=== PATIENT | female | born 1950 | race Caucasian/White ===

== ENCOUNTER 2016-08-02 00:38 | Observation (INO) | payer MEDICARE ==
[~2016-08-02] VITALS: Ht 162.6 cm; Wt 67.3 kg
[~2016-08-02 00:38] MED LIST: NOMEDS; PHENERGAN 25MG.25 M1 PO; TRAMADOL 50MG T50 MG PO
[2016-08-02 00:41] VITALS: BP 167/106
[2016-08-02] MEDS ORDERED: HYDROCHLOROTH12.5 M1 PO (00:45)
--- OUTSIDE RECORDS SUMMARY | 2016-08-02 00:51 | External Medical Summary Rpt ---
Author Author , Organization [employer] Address Unknown Phone Unavailable Purpose Continuity of Care Document - through 2016
--- OUTSIDE RECORDS SUMMARY | 2016-08-02 00:51 | External Medical Summary Rpt ---
Author Author [employer] Organization [employer] Address Unknown Phone Unavailable Purpose Continuity of Care Document - through 2016
--- OUTSIDE RECORDS SUMMARY | 2016-08-02 00:52 | External Medical Summary Rpt ---
Demographics Preferred Language Czech Marital Status Unknown Sikh Affiliation Unknown Race Unknown Ethnic Group Unknown Author Author , Organization [employer] Address Unknown Phone Unavailable Purpose Continuity of Care Document - through 2016 Immunization No patient found.
--- OUTSIDE RECORDS SUMMARY | 2016-08-02 00:52 | External Medical Summary Rpt ---
Demographics Preferred Language Lithuanian Marital Status Unknown Buddhism Affiliation Unknown Race Unknown Ethnic Group Unknown Author Author , Organization [employer] Address Unknown Phone Unavailable Purpose Continuity of Care Document - through 2016 Immunization No patient found.
[2016-08-02 00:55] LABS: HEMOGLOBIN 13.3 g/dL (12.2-16.2); LYMPH # 3.1 K/mm3 (0.7-4.5); LYMPH % 43.1 % (10-50.0)
--- NOTE | 2016-08-02 01:09 | Emergency Room Report ---
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 N Clinical Suspician of Infection? N Mental Status: 1 - Regular (Normal Baseline) Sepsis Risk:Low Sepsis Risk Have you (or family members/close friends) recently traveled outside the [place]? N If Yes, where/when: Have you had exposure to infectious disease within the past month? N TB? Other? Specify: Source patient, RN notes reviewed, family, old records Exam Limitations no limitations Comment pt has been dizzyness over the last 2 weeks after starting diuretic and tonight had syncopal episode and reports she was not breathing for a minute and he gave 2 rescue breaths- no chest pain/palpatation and she was unaware of syncope or diff with breathing Cardiac Chest Pain Chest pain indicative of cardiac No Timing/Duration this evening Severity moderate ALLERGIES Coded Allergies: No Known Allergies (08/02/16) Home Medications Active Scripts Promethazine Hydrochloride (Phenergan 25MG Tab) 25 MG PO Q4-6H PRN #12 Prov: 05/09/11 Reported Medications No Home Medications (NO HOME MEDICATIONS) Hydrochlorothiazide (Hydrochlorothiazide 12.5MG) 25 MG PO DAILY History Medical History General CAD? No Angina: No [place]: No Hypertension? Yes Hyperlipidemia? No CHF? No DVT? No PE? No COPD? No Asthma? No Anemia? No GERD? No Gastric ulcers? No GI Bleed? No Hernia? No Thyroid Problems? No Hypothyroidism? No CVA? No Seizures? No Diabetes? No Renal Insuffiency? No End Stage Renal Disease? No UTI? No Stones? No BPH? No GB Disease: Yes Nephritic Syndrome? No Asplenia? No Hepatitis? No Sickle Cell Disease? No Arthritis? No Migraines? No Cataracts? No Glaucoma? No MRSA? No HIV? No TB? No Anxiety? No Depression? No Cancer? No More? No Immunization Hx DT/Tetanus UNKNOWN Surgical Hx Previous Surgery?Y Cholecystectomy Social History Smoking Hx Smoker: Never Smoker Tobacco: No Alcohol Alcohol: No Drugs none Review of Systems All Other Systems Reviewed and Negative Constitutional denies fever Eyes denies drainage ENT denies: ear discharge, epistaxis, throat pain. Respiratory denies cough, denies shortness of breath, denies wheezing Cardiovascular see HPI, denies chest pain, denies palpitations, syncope Gastrointestinal denies abdominal pain, denies diarrhea, denies vomiting Genitourinary denies: dysuria, frequency, hesitancy, hematuria. Musculoskeletal denies back pain, denies joint pain, denies neck pain Skin denies rash Psychiatric/Neurological denies headache, denies seizure Physical Exam Vital Signs Vital Signs Date Time Temp Pulse Resp B/P Pulse O2 O2 Flow FiO2 Ox Delivery Rate 08/02 0132 81 18 144/81 99 08/02 0100 80 123/85 08/02 0100 79 167/93 08/02 0100 77 157/96 08/02 0041 98.5 85 18 167/106 99 - WBC >12,000 or <4,000 or 10% bands? 2 or more SIRS Criteria Met? B/P:135/80 MAP:126 Creatinine >2.0? UA output<0.5ml/kg/hr for 2 hrs? Platelet count >100,000? Lactate >2.0mmol/1? INR >1.2 or PTT > than 60 sec? Evidence of Organ Dysfunction? Provider documented clinical suspician of infection? N Sepsis Criteria Count: 0 Sepsis Risk: Low Sepsis Risk General Appearance no apparent distress Eye Exam - bilateral eye PERRL, bilateral eye EOMI Ear, Nose, Throat normal ENT inspection, no tongue biting Neck supple, no bruits Respiratory Status No: respiratory distress. Lung Sounds bilateral: lungs clear. 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 No Results/Orders Laboratory Tests 08/02/16 0050: Sodium 140, Potassium 2.3 *L, Chloride 96 L, Carbon Dioxide 36 H, BUN 28 H, Creatinine 1.2 H, Estimated Creat Clear 51, Estimated GFR (MDRD) 45 L, Glucose 106, Calcium 9.7, Total Bilirubin 0.4, AST 21, ALT 27, Alkaline Phosphatase 94, Creatine Kinase 237 H, CK-MB (CK-2) Rel Index 0.7, CK and CKMB Interp 1.6, Troponin I < 0.02, Total Protein 7.9, Albumin 3.9, Globulin 4.0 H, Albumin/ Globulin Ratio 1.0 L, WBC 7.1, RBC 4.64, Hgb 13.3, Hct 41.0, MCV 88.4, RDW 12.9 , Plt Count 322, MPV 6.6 L, Gran % 47.5, Gran # 3.4, Lymphocytes % 43.1, Monocytes % 6.2, Eosinophils % 2.6, Basophils % 0.6, Lymphocytes # 3.1, Monocytes # 0.4, Eosinophils # 0.2, Basophils # 0.0, PUBS MCHC 32.5, MCH 28.7 Current Medication Orders Sig/Janice Start time Last Medication Dose Route Stop Time Status Admin Potassium Chloride/ 100 ML ONCE ONE 08/02 0145 AC 08/02 Water IV 08/02 0344 0144 Sodium Chloride 10 ML PRN PRN 08/02 010 AC IV 08/03 0047 Sodium Chloride 1,000 ML .Q1H1M 08/02 0100 CAN IV Sodium Chloride 10 ML PRN PRN 08/02 0100 DC IV 08/03 0048 Sodium Chloride 1,000 ML .Q1H1M 08/02 0100 DC 08/02 IV 08/02 0200 0053 Sodium Chloride 10 ML PRN PRN 08/02 0100 AC IV 08/03 0052 Sodium Chloride 1,000 ML .STK-MED ONE 08/02 0045 DC IV Orders Procedure Date/time Status Decision to admit 08/02 138 Active ELECTROCARDIOGRAM REQUEST 08/02 48 Active CHEST(2 VIEWS-NOT PORTABLE) 08/02 48 Active IV SALINE LOCK 08/02 48 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 ST/Twave chgs XRAY/CT/US XRAY/CT/US XRAY chest XR interpretation by reviewed by me Xray Results normal/NAD Departure Departure Time of Disposition 0210 Disposition Still a Patient Clinical Impression Primary Impression: Syncope Qualifiers: Syncope type: unspecified Qualified Code: R55 - Syncope and collapse Secondary Impressions: Hypokalemia, Renal insufficiency Condition STABLE Referrals Ced HOLLAND,Toi discussed with dr clements ED Critical Care Critical Care No at 0212
--- NOTE | 2016-08-02 01:09 | Emergency Room Report ---
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 N Clinical Suspician of Infection? N Mental Status: 1 - Regular (Normal Baseline) Sepsis Risk:Low Sepsis Risk Have you (or family members/close friends) recently traveled outside the [place]? N If Yes, where/when: Have you had exposure to infectious disease within the past month? N TB? Other? Specify: Source patient, RN notes reviewed, family, old records Exam Limitations no limitations Comment pt has been dizzyness over the last 2 weeks after starting diuretic and tonight had syncopal episode and reports she was not breathing for a minute and he gave 2 rescue breaths- no chest pain/palpatation and she was unaware of syncope or diff with breathing Cardiac Chest Pain Chest pain indicative of cardiac No Timing/Duration this evening Severity moderate ALLERGIES Coded Allergies: No Known Allergies (08/02/16) Home Medications Active Scripts Promethazine Hydrochloride (Phenergan 25MG Tab) 25 MG PO Q4-6H PRN #12 Prov: 05/09/11 Reported Medications No Home Medications (NO HOME MEDICATIONS) Hydrochlorothiazide (Hydrochlorothiazide 12.5MG) 25 MG PO DAILY History Medical History General CAD? No Angina: No [place]: No Hypertension? Yes Hyperlipidemia? No CHF? No DVT? No PE? No COPD? No Asthma? No Anemia? No GERD? No Gastric ulcers? No GI Bleed? No Hernia? No Thyroid Problems? No Hypothyroidism? No CVA? No Seizures? No Diabetes? No Renal Insuffiency? No End Stage Renal Disease? No UTI? No Stones? No BPH? No GB Disease: Yes Nephritic Syndrome? No Asplenia? No Hepatitis? No Sickle Cell Disease? No Arthritis? No Migraines? No Cataracts? No Glaucoma? No MRSA? No HIV? No TB? No Anxiety? No Depression? No Cancer? No More? No Immunization Hx DT/Tetanus UNKNOWN Surgical Hx Previous Surgery?Y Cholecystectomy Social History Smoking Hx Smoker: Never Smoker Tobacco: No Alcohol Alcohol: No Drugs none Review of Systems All Other Systems Reviewed and Negative Constitutional denies fever Eyes denies drainage ENT denies: ear discharge, epistaxis, throat pain. Respiratory denies cough, denies shortness of breath, denies wheezing Cardiovascular see HPI, denies chest pain, denies palpitations, syncope Gastrointestinal denies abdominal pain, denies diarrhea, denies vomiting Genitourinary denies: dysuria, frequency, hesitancy, hematuria. Musculoskeletal denies back pain, denies joint pain, denies neck pain Skin denies rash Psychiatric/Neurological denies headache, denies seizure Physical Exam Vital Signs Vital Signs Date Time Temp Pulse Resp B/P Pulse O2 O2 Flow FiO2 Ox Delivery Rate 08/02 0132 81 18 144/81 99 08/02 0100 80 123/85 08/02 0100 79 167/93 08/02 0100 77 157/96 08/02 0041 98.5 85 18 167/106 99 - WBC >12,000 or <4,000 or 10% bands? 2 or more SIRS Criteria Met? B/P:135/80 MAP:126 Creatinine >2.0? UA output<0.5ml/kg/hr for 2 hrs? Platelet count >100,000? Lactate >2.0mmol/1? INR >1.2 or PTT > than 60 sec? Evidence of Organ Dysfunction? Provider documented clinical suspician of infection? N Sepsis Criteria Count: 0 Sepsis Risk: Low Sepsis Risk General Appearance no apparent distress Eye Exam - bilateral eye PERRL, bilateral eye EOMI Ear, Nose, Throat normal ENT inspection, no tongue biting Neck supple, no bruits Respiratory Status No: respiratory distress. Lung Sounds bilateral: lungs clear. 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 No Results/Orders Laboratory Tests 08/02/16 0050: Sodium 140, Potassium 2.3 *L, Chloride 96 L, Carbon Dioxide 36 H, BUN 28 H, Creatinine 1.2 H, Estimated Creat Clear 51, Estimated GFR (MDRD) 45 L, Glucose 106, Calcium 9.7, Total Bilirubin 0.4, AST 21, ALT 27, Alkaline Phosphatase 94, Creatine Kinase 237 H, CK-MB (CK-2) Rel Index 0.7, CK and CKMB Interp 1.6, Troponin I < 0.02, Total Protein 7.9, Albumin 3.9, Globulin 4.0 H, Albumin/ Globulin Ratio 1.0 L, WBC 7.1, RBC 4.64, Hgb 13.3, Hct 41.0, MCV 88.4, RDW 12.9 , Plt Count 322, MPV 6.6 L, Gran % 47.5, Gran # 3.4, Lymphocytes % 43.1, Monocytes % 6.2, Eosinophils % 2.6, Basophils % 0.6, Lymphocytes # 3.1, Monocytes # 0.4, Eosinophils # 0.2, Basophils # 0.0, PUBS MCHC 32.5, MCH 28.7 Current Medication Orders Sig/Janice Start time Last Medication Dose Route Stop Time Status Admin Potassium Chloride/ 100 ML ONCE ONE 08/02 0145 AC 08/02 Water IV 08/02 0344 0144 Sodium Chloride 10 ML PRN PRN 08/02 010 AC IV 08/03 0047 Sodium Chloride 1,000 ML .Q1H1M 08/02 0100 CAN IV Sodium Chloride 10 ML PRN PRN 08/02 0100 DC IV 08/03 0048 Sodium Chloride 1,000 ML .Q1H1M 08/02 0100 DC 08/02 IV 08/02 0200 0053 Sodium Chloride 10 ML PRN PRN 08/02 0100 AC IV 08/03 0052 Sodium Chloride 1,000 ML .STK-MED ONE 08/02 0045 DC IV Orders Procedure Date/time Status Decision to admit 08/02 138 Active ELECTROCARDIOGRAM REQUEST 08/02 48 Active CHEST(2 VIEWS-NOT PORTABLE) 08/02 48 Active IV SALINE LOCK 08/02 48 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 ST/Twave chgs XRAY/CT/US XRAY/CT/US XRAY chest XR interpretation by reviewed by me Xray Results normal/NAD Departure Departure Time of Disposition 0210 Disposition Still a Patient Clinical Impression Primary Impression: Syncope Qualifiers: Syncope type: unspecified Qualified Code: R55 - Syncope and collapse Secondary Impressions: Hypokalemia, Renal insufficiency Condition STABLE Referrals Ced HOLLAND,Toi discussed with dr clements ED Critical Care Critical Care No at 0212
[2016-08-02 01:33] LABS: BUN 28 mg/dL (7-18); GFR (ESTIMATED) 45 ML/MIN (59-)
[2016-08-02 02:30] VITALS: BP 141/87
[2016-08-02 02:54] VITALS: BP 141/87
[2016-08-02 07:27] LABS: BUN 21 mg/dL (7-18); GFR (ESTIMATED) 55 ML/MIN (59-)
--- NOTE | 2016-08-02 07:27 | RADIOLOGY REPORT PS360 ---
CHEST(2 VIEWS-NOT PORTABLE) Ordering physician: Toi Coughlin MD Age: 65 years Female INDICATION: chest symptomsPASSED OUT syncope short of breath PROCEDURE: CHEST(2 VIEWS-NOT PORTABLE) FINDINGS: No prior chest films for comparison Lungs well expanded and clear with no active disease. No pneumothorax. No pleural effusion. No pulmonary nodules or lesions identified.. Heart normal size. Normal pulmonary vascularity. Hilar and mediastinal structures appear satisfactory. Chest wall unremarkable... Dextroscoliosis noted T-spine IMPRESSION ----- No active cardiopulmonary disease. Lungs clear [id number] dextroscoliosis T-spine noted.
--- NOTE | 2016-08-02 07:30 | PHARMACY CLINIC NOTE ---
Patient Demographics Patient Demographics Admission date: 08/02/16 Date: 08/02/16 Time: 07 Allergies Coded Allergies: No Known Allergies (08/02/16) HEIGHT- FT: 5 IN: 4.00 K.302 VTE General Information Labs: Laboratory Tests 08/02 0050 Hematology Hgb (12.2 - 16.2 g/dL) 13.3 Hct (37.0 - 47.0 %) 41.0 Plt Count (142 - 424 K/mm3) 322 Disclaimer The following section includes nursing documentation that has been pulled in for pharmacy review. Patient's VTE score: 1 Patient's VTE Risk: VERY LOW RISK Clinical trial participant? No VTE prophylaxis [id number] VTE prophylaxis ordered? Yes Type of prophylaxis/treatment: BAMBI at 0729
[2016-08-02 08:24] VITALS: BP 131/76
--- NOTE | 2016-08-02 08:24 | CARDIOVASCULAR REPORT ---
"Cerebrovascular Exam Indications: 780.2 Syncope and collapse. IMPRESSIONS 1. The bilateral vertebral arteries are patent with normal antegrade flow. 2. Study suggests less than 20% stenosis involving the right internal carotid artery and the left internal carotid artery. 3. Tortuous carotid arteries seen bilaterally. History: Risk factors: Hypertension. Carotid duplex study. Complete study and Doppler flow study including spectral analysis, color and schwartz scale imaging. Location: Vascular laboratory. Patient status: Inpatient. Tables: Arterial flow: + +--------+---------+ |Location |V sys |V ed | + +--------+---------+ |Right CCA - proximal|73.1cm/s|17.3cm/s | + +--------+---------+ |Right CCA - distal |86.4cm/s|28.3cm/s | + +--------+---------+ |Right ECA |95.1cm/s|---------| + +--------+---------+ |Right ICA - proximal|44.8cm/s|16.5cm/s | + +--------+---------+ |Right ICA - mid |92.2cm/s|28.7cm/s | + +--------+---------+ |Right ICA - distal |68.5cm/s|-25.1cm/s| + +--------+---------+ |Right vertebral |33cm/s |---------| + +--------+---------+ |Left CCA - proximal |90.4cm/s|20.4cm/s | + +--------+---------+ |Left CCA - distal |88cm/s |23.6cm/s | + +--------+---------+ |Left ECA |55.1cm/s|---------| + +--------+---------+ |Left ICA - proximal |68.4cm/s|22cm/s | + +--------+---------+ |Left ICA - mid |63cm/s |25.1cm/s | + +--------+---------+ |Left ICA - distal |69.1cm/s|21.4cm/s | + +--------+---------+ |Left vertebral |32cm/s |---------| + +--------+---------+ Velocity ratios: + + + + + + | |Right, V sys|Right, V ed|Left, V sys|Left, V ed| + + + + + + |Max ICA/dist CCA|1.07 |1.01 |0.79 |1.06 | + + + + + + (Report amended ) Electronically signed by: Socrates Aly [id number]"
--- NOTE | 2016-08-02 10:51 | RADIOLOGY REPORT PS360 ---
ECHO ADULT PROCEDURE: INDICATIONS FOR THE TEST: Chest pain COPD Heart Murmur Tobacco Smoking Palpitations Fatigue SyncopeX Edema HypertensionXDiabetes Mellitus Rheumatic Fever SOB MENDIOLA Obesity Hyperlipidemia Family History HD Additional History PATIENT INFORMATION HEIGHT: 64 WEIGHT:148 GENDER: Female B/P:110/70 2-D/M-MODE INTERPRETATION: 2-D MEASUREMENTS OBSERVED VALUES IN CMS Right Ventricular Dimension (RVDd) 2.6 Interventricular Septum (Thickness)(IVsd) .9 Left Ventricular Internal Dimensions(LVIDd) 4.9 Left Ventricular Posterior Wall (Thickness)(LVPWd) .9 Aortic Root 2.8 Aortic Cusp Separation 1.7 Left Atrial Dimensions (LAD) 3.6 2D 1. Left atrium is qualitatively mildly enlarged, left ventricle is normal size, there is no concentric left ventricular hypertrophy, visually estimated ejection fraction of 55% with no obvious regional wall motion abnormality. 2. The right atrium and right ventricle are normal size and contractility. 3. The aortic valve is minimally thickened and calcified, leaflet continue to display mobility. 4. The mitral valve has mitral annular calcification there is no mitral stenosis. 5. The tricuspid valve is structurally normal 6. The pulmonic valve is poorly visualized. 7. No significant pericardial effusion noted. DOPPLER INTERROGATION: Doppler interrogation of the aortic mitral and tricuspid valvular presence of trace mitral and tricuspid regurgitation, calculated right ventricular systolic pressure is 33 mmHg assuming right atrial pressure of 10 mmHg. Grade 1 diastolic dysfunction seen without tissue Doppler evidence of raised left atrial pressure. CONCLUSION: 1. Mildly enlarged left atrium, normal left ventricular size, preserved left ventricular systolic function, visually estimated ejection fraction of 55% with no obvious regional wall motion abnormality, grade 1 diastolic dysfunction seen without tissue Doppler evidence of raised left atrial pressure. 2. Mild mitral and tricuspid regurgitation, calculated right ventricular systolic pressure is 33 mmHg. 3. No significant pericardial effusion noted.
[2016-08-02] MEDS ORDERED: LISINOPRIL 5MG T5 MG PO (11:42)
[2016-08-02] MEDS ORDERED: POTASSIUM CHLO10 MEQ PO (11:43)
--- NOTE | 2016-08-02 11:44 | Discharge Summary Standard ---
Demographics: Admit date: 07/23/16 Chief complaint: I passed out PRIMARY DIAGNOSIS: SYNCOPE Allergies: Coded Allergies: No Known Allergies (08/02/16) History of present illness: History of present illness: 65-year-old recently started on hydrochlorothiazide for hypertension presented to the hospitalafter an apparent syncopal event. History is provided by the . He describes the ptient getting up in the middle of the night use the bathroom when he heard her fall. When he went to check on herhe could not tell if she was breathing on her own. He provided 2 rescue breaths which caused the patient to start coughing. While this is the first syncopal event that she has hadshe does admit to lightheadednesssince starting hydrochlorothiazide. She experiences lightheadedness upon standing and her tells me her gait is unsteady, as if she was drunk. She was also found to have low potassium. Past medical history: Family HX Family Hx Insignificant No Diabetes No CAD No Hypertension No Hyperlipidemia No Cancer No TB No Immunization HX DT/Tetanus Unknown Pneumonia Unknown TB Test in last year No General CAD? No Angina: No [place]: No Hypertension? Yes Hyperlipidemia? No CHF? No DVT? No PE? No COPD? No Asthma? No Anemia? No GERD? No Gastric ulcers? No GI Bleed? No Hernia? No Thyroid Problems? No Hypothyroidism? No CVA? No Seizures? No Diabetes? No Renal Insuffiency? No UTI? No Stones? No BPH? No GB Disease: Yes Nephritic Syndrome? No Asplenia? No Hepatitis? No Sickle Cell Disease? No Arthritis? No Migraines? No Cataracts? No Glaucoma? No MRSA? No HIV? No TB? No Anxiety? No Depression? No Cancer? No More? No Past Surgical HX Previous Surgery?Y Cholecystectomy Current home meds: Active Scripts Promethazine Hydrochloride (Phenergan 25MG Tab) 25 MG PO Q4-6H PRN #12 Prov: 05/09/11 Reported Medications Hydrochlorothiazide (Hydrochlorothiazide 12.5MG) 25 MG PO DAILY Social Hx: Smoking HX Tobacco No Are you/the child exposed to second-hand smoke: No Alcohol Alcohol: No Hx of Drug Use Drug Use? No Review of systems: Constitutional no symptoms reported. Respiratory no symptoms reported. Cardiovascular see HPI Gastrointestinal/Abdominal no symptoms reported Genitourinary no symptoms reported. Musculoskeletal no symptoms reported. Neurological Yes: no symptoms reported. Exam: Lab data for last 24 hours: Laboratory Tests 08/02/16 0650: Sodium 141, Potassium 2.7 *L, Chloride 99, Carbon Dioxide 34 H, BUN 21 H, Creatinine 1.0, Estimated Creat Clear 58, Estimated GFR (MDRD) 55 L, Glucose 108 H, Calcium 9.4, Creatine Kinase 199 H, CK-MB (CK-2) Rel Index 0.6, CK and CKMB Interp 1.1, Troponin I < 0.02 08/02/16 0400: Creatine Kinase 206 H, CK-MB (CK-2) Rel Index 0.5, CK and CKMB Interp 1.1, Troponin I < 0.02 08/02/16 0050: Sodium 140, Potassium 2.3 *L, Chloride 96 L, Carbon Dioxide 36 H, BUN 28 H, Creatinine 1.2 H, Estimated Creat Clear 51, Estimated GFR (MDRD) 45 L, Glucose 106, Calcium 9.7, Total Bilirubin 0.4, AST 21, ALT 27, Alkaline Phosphatase 94, Creatine Kinase 237 H, CK-MB (CK-2) Rel Index 0.7, CK and CKMB Interp 1.6, Troponin I < 0.02, Total Protein 7.9, Albumin 3.9, Globulin 4.0 H, Albumin/ Globulin Ratio 1.0 L, WBC 7.1, RBC 4.64, Hgb 13.3, Hct 41.0, MCV 88.4, RDW 12.9 , Plt Count 322, MPV 6.6 L, Gran % 47.5, Gran # 3.4, Lymphocytes % 43.1, Monocytes % 6.2, Eosinophils % 2.6, Basophils % 0.6, Lymphocytes # 3.1, Monocytes # 0.4, Eosinophils # 0.2, Basophils # 0.0, PUBS MCHC 32.5, MCH 28.7 Admission vital signs: 1ST Vital Signs Result Date Time Pulse Ox 99 08/02 40 B/P 167/106 08/02 40 Temp 98.5 08/02 40 Pulse 85 08/02 40 Resp 18 08/02 004 O2 Delivery ROOM AIR 08/02 0230 Exam General appearance: normal appearance, alert, awake Eyes: normal exam, anicteric ENT: normal exam, mucous membranes moist Neck: normal inspection, non-tender, no carotid bruit, no JVD Cardiovascular: normal exam Respiratory: normal exam, clear to auscultation ABD: normal exam, non-distended, normal bowel sounds Musculoskeletal: normal exam Neuro: normal exam, alert, no deficit Hospital Course Hospital Course: Patient was admitted and POTASSIUM WAS REPLACED WITH BOTH ORAL AND IV forms of potassium chloride. Blood pressure was monitored and patient was normotensive. Echocardiogram was performed which revealed a normal ejection fraction. Carotid Dopplers were performed which revealed no significant carotid disease. EKG did not detect any arrhythmia. After tests were completed and patient was feeling better she was discharged to home. Patient will continue a potassium supplement and a low dose of lisirothiazide will be discontinued. Medications Medications: Discharge meds are as noted. Follow up Follow up in office in: as scheduled with: Toi Coughlin MD at 1151
[2016-08-02 12:20] VITALS: BP 146/97
== END 2016-08-02 12:10 | disposition home or self-care (01) ==
LOC: ER 00:38 → 2ND 01:40
PROVIDERS: Emergency Medicine
DX: R55 Syncope and collapse (principal); I10 Essential (primary) hypertension; E87.6 Hypokalemia
CPT/HCPCS: G0378

== ENCOUNTER 2016-10-22 21:38 | Emergency (ER) | payer MEDICARE, BC ==
[~2016-10-22] VITALS: Ht 162.6 cm; Wt 70.8 kg
[~2016-10-22 21:38] MED LIST changes: +HYDROCHLOROTH12.5 M1 PO; +LISINOPRIL 5MG T5 MG PO; +POTASSIUM CHLO10 MEQ PO
--- NOTE | 2016-10-22 23:32 | Emergency Room Report ---
History of Present Illness Time Seen by [id number] Presenting Problem in Triage Pt arrived:Walked Presenting Problem:REPORTS SHE STARTED WITH NEW ONSET HTN IN JULY; HAS HAD PROBLEMS GETTING THE RIGHT BP MED, HAS HX OF SYNCOPAL EPISODES IN THE PAST WITH WHICH SHE WAS ADMITTED HERE FOR. REPORTS HE HAS TAKEN HER BP SEVERAL TIMES TODAY AND HAS READINGS 180'S SYS / 100'S LOVETT. REPORTS NO HEAD, NO DIZZINES NO LIGHTHEADEDNESS, NO OTHER PROBLEMS. DENIES CP. 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 N Clinical Suspician of Infection? N Mental Status: 1 - Regular (Normal Baseline) Sepsis Risk:Low Sepsis Risk Have you (or family members/close friends) recently traveled outside the [place]? N If Yes, where/when: Have you had exposure to infectious disease within the past month? N TB? Other? Specify: Source patient, RN notes reviewed, family, old records Exam Limitations no limitations Comment pt with elevated bp despite meds no neuro def and no fever or rash Cardiac Chest Pain Chest pain indicative of cardiac No Timing/Duration this evening Severity moderate ALLERGIES Coded Allergies: hydrochlorothiazide (SYNCOPE 10/22/16) Home Medications Active Scripts LISINOPRIL (Lisinopril) 5 MG PO DAILY #30 TAB Prov: 08/02/16 History Medical History General CAD? No Angina: No MD: No Hypertension? Yes Hyperlipidemia? No CHF? No DVT? No PE? No COPD? No Asthma? No Anemia? No GERD? No Gastric ulcers? No GI Bleed? No Hernia? No Thyroid Problems? No Hypothyroidism? No CVA? No Seizures? No Diabetes? No Renal Insuffiency? No End Stage Renal Disease? No UTI? No Stones? No BPH? No GB Disease: Yes Nephritic Syndrome? No Asplenia? No Hepatitis? No Sickle Cell Disease? No Arthritis? No Migraines? No Cataracts? No Glaucoma? No MRSA? No HIV? No TB? No Anxiety? No Depression? No Cancer? No More? No Immunization Hx DT/Tetanus Unknown Pneumonia Refuses Surgical Hx Previous Surgery?Y Cholecystectomy Family History Family Hx Diabetes No CAD No Hypertension No Hyperlipidemia No Cancer No TB No Social History Smoking Hx Smoker: Never Smoker Tobacco: No Alcohol Alcohol: No Drugs none Review of Systems All Other Systems Reviewed and Negative Constitutional denies fever Eyes denies drainage ENT denies: ear discharge, epistaxis, throat pain. Respiratory denies cough, denies shortness of breath, denies wheezing Cardiovascular denies chest pain, denies palpitations, denies syncope Gastrointestinal denies abdominal pain, denies diarrhea, denies vomiting Genitourinary denies: dysuria, frequency, hesitancy, hematuria. Musculoskeletal denies back pain, denies joint pain, denies joint swelling, denies neck pain Skin denies rash Psychiatric/Neurological denies headache, denies seizure Physical Exam Vital Signs Vital Signs Date Time Temp Pulse Resp B/P Pulse O2 O2 Flow FiO2 Ox Delivery Rate 10/23 0001 78 20 159/98 99 10/22 2252 71 16 167/106 99 10/22 2144 73 16 185/117 98 - WBC >12,000 or <4,000 or 10% bands? 2 or more SIRS Criteria Met? B/P:167/106 MAP:139 Creatinine >2.0? UA output<0.5ml/kg/hr for 2 hrs? Platelet count >100,000? Lactate >2.0mmol/1? INR >1.2 or PTT > than 60 sec? Evidence of Organ Dysfunction? Provider documented clinical suspician of infection? N Sepsis Criteria Count: 0 Sepsis Risk: Low Sepsis Risk General Appearance no apparent distress Eye Exam - bilateral eye PERRL, bilateral eye EOMI Ear, Nose, Throat normal ENT inspection Neck supple, no bruits Respiratory Status No: respiratory distress. Lung Sounds bilateral: lungs clear. 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 No Results/Orders Current Medication Orders Sig/Janice Start time Last Medication Dose Route Stop Time Status Admin Clonidine HCl 0.1 MG ONCE ONE 10/22 2214 DC 10/22 PO 10/22 Clonidine HCl 0 .STK-MED ONE 10/22 2214 DC .ROUTE Departure Departure Time of Disposition 2359 Disposition DC Home or Self Care(routine) Clinical Impression Primary Impression: Hypertensive emergency Condition STABLE Referrals Toi Coughlin MD (Family) Patient Instructions High Blood Pressure (Hypertension) (Alternative Therapy) Additional Instructions will increase dose to 5 mg daily and see pcp for follow up Discharge Counseling Counseled pt/family regarding diagnosis, test results, medications/RX, follow up needs ED Critical Care Critical Care No at 0005
[2016-10-23] MEDS ORDERED: LISINOPRIL2.5 MG PO (00:04)
[2016-10-23 00:14] VITALS: BP 159/98
== END 2016-10-23 00:15 | disposition home or self-care (01) ==
LOC: ER 21:38
DX: I16.1 Hypertensive emergency (principal); I10 Essential (primary) hypertension; Z91.09 Other allergy status, other than to drugs and biological substances; Z79.899 Other long term (current) drug therapy; Z90.49 Acquired absence of other specified parts of digestive tract

== ENCOUNTER → 2016-12-20 | Outpatient (CLI) | payer MEDICARE, BC ==
[~2016-12-20] MED LIST changes: +LISINOPRIL2.5 MG PO
--- NOTE | 2016-12-22 11:36 | RADIOLOGY REPORT PS360 ---
SPECT MYOCARDIAL PERFUSION SCAN, REST AND STRESS: EXERCISE STRESS: [facility] REVIEW QGS EF AND WALL MOTION EVALUATION: QPS - PERFUSION EVALUATION: HISTORY: Chest pain, SOB, HTN PROCEDURE: Rest imaging performed after administration of10.38 millicuries Tc MIBI. Dose administered at6:35 a.m., with imaging thereafter. Stress imaging was then performed [id number] minutes 15 seconds of exercise stress. The patient achieved a heart [id number] with projected heart rate of129 . Resting BP160/100 with stress 156/84. At maximum exercise stress,32.4 millicuries Tc MIBI administered at8:25 a.m. with [id number] minutes thereafter. FINDINGS: Perfusion Evaluation: The single slice spect images as well as the [facility] bull's-eye data summary were reviewed. Wall Motion and Ejection Fraction Evaluation: Gated SPECT review and analysis used to evaluate these features. There is a 67 % left ventricular ejection fraction. There seems to be good wall motion Patient exercised 11 minutes 15 seconds on standard [facility] protocol with no associated reported symptoms. EKG revealed less than [address] segment depression. EKG portion of this test was considered normal SPECT images reveal small defect in the mid anterior apical wall which does appear to improve with rest. IMPRESSION: Excellent exercise capacity with normal EKG response to 11 minutes and 15 seconds of exercise numbers protocol. Clinical correlation is advised. Small mid anterior apical reversible ischemia on SPECT images. Normal ejection fraction normal wall motion
--- NOTE | 2016-12-22 11:36 | RADIOLOGY REPORT PS360 ---
SPECT MYOCARDIAL PERFUSION SCAN, REST AND STRESS: EXERCISE STRESS: [facility] REVIEW QGS EF AND WALL MOTION EVALUATION: QPS - PERFUSION EVALUATION: HISTORY: Chest pain, SOB, HTN PROCEDURE: Rest imaging performed after administration of10.38 millicuries Tc MIBI. Dose administered at6:35 a.m., with imaging thereafter. Stress imaging was then performed [id number] minutes 15 seconds of exercise stress. The patient achieved a heart [id number] with projected heart rate of129 . Resting BP160/100 with stress 156/84. At maximum exercise stress,32.4 millicuries Tc MIBI administered at8:25 a.m. with [id number] minutes thereafter. FINDINGS: Perfusion Evaluation: The single slice spect images as well as the [facility] bull's-eye data summary were reviewed. Wall Motion and Ejection Fraction Evaluation: Gated SPECT review and analysis used to evaluate these features. There is a 67 % left ventricular ejection fraction. There seems to be good wall motion Patient exercised 11 minutes 15 seconds on standard [facility] protocol with no associated reported symptoms. EKG revealed less than [address] segment depression. EKG portion of this test was considered normal SPECT images reveal small defect in the mid anterior apical wall which does appear to improve with rest. IMPRESSION: Excellent exercise capacity with normal EKG response to 11 minutes and 15 seconds of exercise numbers protocol. Clinical correlation is advised. Small mid anterior apical reversible ischemia on SPECT images. Normal ejection fraction normal wall motion
== END ==
LOC: RAD 06:17
DX: R07.89 Other chest pain (principal); R06.00 Dyspnea, unspecified; I10 Essential (primary) hypertension
CPT/HCPCS: A9502